=== PATIENT | female | born 1990 | race Two or more races ===

== ENCOUNTER 2025-01-29 12:20 | Emergency (ER) | payer OTHER, SELFPAY ==
[2025-01-29] VITALS (8 sets, daily range): BP systolic 124–155; BP diastolic 79–108; PULSE 84–108; RESP 18–96; TEMP 36.6–36.9; O2SAT 95–99; BMI 32.3
--- NOTE | 2025-01-29 12:23 | PC.CC ---
Patient was BIBA from home for intentional overdose. EMS reported to bedside RN Meg that patient intentionally took 30-40 25mg of Lamotrigine and drank 17 beers. Per Officer Ernesto, patient reported she does not know if the took the medication intentionally.
--- NOTE | 2025-01-29 12:31 | EKG_ITS ---
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
--- NOTE | 2025-01-29 12:33 | XR_ITS ---
EXAMINATION: AP chest single view TECHNIQUE: Portable semiupright AP chest single view Date and time: January 29, 2025, 12:36 p.m. INDICATIONS: Chest pain abdominal pain today. FINDINGS: Reduced inspiratory effort No pneumonia or pulmonary edema Normal heart size IMPRESSION: Poor inspiratory effort chest x-ray
--- NOTE | 2025-01-29 12:49 | PC.NURSE ---
Called Poison control, spoke with Raymond , informed him, patient took approx. 30-40 tabs of lamitrogen 25mg pills at approx. 1210pm with 17 beers. Per Raymond urbano charcoal, EKG stat and repeat in 6 hrs, if QRS prolonged >120, give 2 AMp of Sodium Bicarb, get cbc,cmp, tylenol, ASA, TANA and UDS levels. Monitor for seizures, place in seizure precautions, if patient has sz give benzodiazepines, Monitor for 6-8 hrs and ok to medical cleared if asymptomatic, Will notify Dr. Gay.
[2025-01-29 12:50] LABS: Basophils # (Auto) 0.0 Thou/mm3 (0.0-0.2); Basophils % (Auto) 0 % (0-2.5); Eosinophils # (Auto) 0.0 Thou/mm3 (0.0-0.5); Eosinophils % (Auto) 0 % (0-10); Hematocrit 38.3 % (36.0-46.0); Hemoglobin 12.9 g/dL (12.0-16.0); Immature Granulocytes Auto 0.04 Thou/mm3 (0.00-0.00); Lymphocytes # (Auto) 1.6 Thou/mm3 (1.0-4.8); Lymphocytes % (Auto) 18 % (10-50); Mean Corpuscular HGB Conc 33.7 g/dl (31.0-37.0); Mean Corpuscular Hemoglobin 29.0 pg (25.0-35.0); Mean Corpuscular Volume 86 fL (80-100); Monocytes # (Auto) 0.3 Thou/mm3 (0.0-0.8); Monocytes % (Auto) 4 % (0-12); Neutrophils # (Auto) 6.5 Thou/mm3 (1.8-7.7); Neutrophils % (Auto) 77 % (37-80); Nucleated Red Blood Cell # 0.00 Thou/mm3 (0.00-0.00); Nucleated Red Blood Cell % 0 /100 WBC (0); Platelet Count 317 Thou/mm3 (140-440); RDW Standard Deviation 42.2 fL (36.4-46.3); Red Blood Count 4.45 Miln/mm3 (4.00-5.20); White Blood Count 8.5 Thou/mm3 (3.6-11.0)
[2025-01-29] MEDS: ONDANSETRON INJ 2 MG/ML INJ 2 ML 4 MG IVP (13:08)
[2025-01-29] MEDS: FAMOTIDINE INJ 10 MG/ML VIAL 2 ML 20 MG IVP (13:08)
[2025-01-29] MEDS: SODIUM CHLORIDE 0.9% 1000 ML 1,000 ML 999 ML IV (13:09)
[2025-01-29 13:18] LABS: Acetaminophen < 2.0 mcg/mL (10.0-20.0); Alanine Aminotransferase 32 U/L (10-49); Albumin, Serum 5.2 gm/dL (3.5-5.0); Albumin/Globulin Ratio 1.8 (1.2-2.2); Alcohol, Blood Medical 76.2 mg/dL (0-10.0); Alkaline Phosphatase 97 U/L (46-116); Anion Gap 17 (7-16); Aspartate Amino Transferase 41 U/L (0-34); BUN/Creatinine Ratio 8 Ratio (12-20); Bilirubin,Total 0.2 mg/dL (0.3-1.2); Blood Urea Nitrogen 6 mg/dL (9-23); Calcium 9.0 mg/dL (8.3-10.6); Calcium (Corrected) 9.0 mg/dL (8.5-10.1); Carbon Dioxide 18.8 mMol/L (20.0-31.0); Chloride 107 mMol/L (98-107); Creatinine (Component) 0.8 mg/dL (0.6-1.3); Estimated Creatinine Clearance 112.4 mL/min (>60); Globulin 2.9 gm/dL (2.3-3.5); Glucose 124 mg/dL (74-106); Osmolality,Calculated 283 (275-295); Potassium 4.2 mMol/L (3.4-5.1); Salicylate < 3.0 mg/dL; Sodium 143 mMol/L (136-145); Total Protein 8.1 gm/dL (5.7-8.2); eGFR > 60 See Note
[2025-01-29 13:26] LABS: Collection Type, Urine Clean Catch; Squamous Epithelial Cell,Urine 0 /hpf (0-5)
--- NOTE | 2025-01-29 13:29 | PC.NURSE ---
Per Dr. Gay, no activated charcoal needed to be given to patient.
[2025-01-29 13:33] LABS: HCG Qualitative,Urine Negative
[2025-01-29 13:35] LABS: Bacteria,Urine Rare; Bilirubin,Urine Negative (Negative); Blood,Urine Negative (Negative); Clarity,Urine Clear (Clear/Hazy); Color,Urine Colorless (Lt Yel-Yel); Culture Indicated,Urine Not Indicated; Glucose, Urine Negative (Negative); Ketones,Urine Negative (Negative); Leukocyte Esterase,Urine Positive (Negative); Nitrite,Urine Negative (Negative); PH,Urine 5.0 (5.0-7.0); Protein,Urine Negative (Neg - Trace); RBC,Urine 1 /hpf (0-3); Specific Gravity,Urine 1.003 (1.001-1.035); Urobilinogen,Urine Negative mg/dL (0.0-1.0); WBC,Urine 1 /hpf (0-5)
--- NOTE | 2025-01-29 13:44 | PC.NURSE ---
Stokes scale not able to completely answered due to patient not verbally responding to questions at this time other than stating her stomach hurts. RN will continue to prompt patient columbia scale questionnaire.
[2025-01-29 13:51] LABS: Amphetamine/Methamp Scrn,U Negative (Negative); Barbiturate Screen,Urine Negative (Negative); Benzodiazepines Screen,Urine Negative (Negative); Benzoylecgonine Screen, Ur Negative (Negative); Fentanyl Screen,Urine Negative (Negative); Opiate Screen,Urine Negative (Negative); THC Screen,Urine Negative (Negative)
--- NOTE | 2025-01-29 14:07 | EDNOTE_ITS ---
ED Overdose ERNIEE/HPI General Chief Complaint: Overdose Stated Complaint: OD Time Seen by Provider: 01/29/25 12:27 Source: patient Arrival date/time: 01/29/25 12:20 Mode of arrival: EMS Limitations: altered mental status ERNIEE / YOLANDE TOLEDO complaint: intentional overdose Onset (ago): hour(s) Time: 08:00 Intent: suicide attempt Associated symptoms: depression Treatments Prior to Arrival: oxygen Related Data Allergies Allergy/AdvReac Type Severity Reaction Status Date / Time ibuprofen Allergy Intermediate Abdominal Verified 01/29/25 12:32 Pain Review of Systems Review of Systems Systems Reviewed: All systems reviewed, normal except as documented Past Medical History Past Medical History CARDIAC: Positive Hypertension; Negative Congestive Heart Failure RESPIRATORY: Negative Chronic Obstructive Pulmonary Disease (COPD) GENITOURINARY: Negative Renal Disease ENDOCRINE: Negative Diabetes Mellitus Type 1 or Diabetes Mellitus Type 2 PSYCHO/SOCIAL: Positive Bipolar Disorder ED Exam General Limitations: Present altered mental status General appearance: Present lethargic Head Head exam: Present atraumatic Eye Eye exam: Present normal appearance, PERRL and EOMI ENT ENT exam: Present normal exam, normal oropharynx and mucous membranes moist Neck Neck exam: Present normal inspection, full ROM and trachea midline Chest Chest inspection: Present normal inspection and symmetric chest wall rise Respiratory Respiratory exam: Present normal lung sounds bilaterally Cardiovascular Cardiovascular exam: Present regular rate, normal rhythm and normal heart sounds Abdominal Exam Abdominal exam: Present soft and normal bowel sounds; Absent organomegaly or mass Rectal Exam Rectal exam: Present deferred Extremities Exam Extremities exam: Present normal inspection and full ROM Back Exam Back exam: Present normal inspection and full ROM Neurological Exam Neurological exam: Present other (initially unable to assess) Psychiatric Psychiatric exam: Present depressed and other (tearful) Skin Skin exam: Present warm, dry, intact and normal color Course Quality Measures none Orders Category Date Time Status Bedside Blood Glucose Q1HR Care 01/29/25 12:31 Completed Coordinator Skill Training Program NOW Care 01/29/25 12:32 Completed Continuous Pulse Oximetry NOW Care 01/29/25 12:31 Completed EKG (ED ONLY) *Do not use* NOW Care 01/29/25 12:32 Completed In and Out Catheter X1 Care 01/29/25 12:31 Completed Insert IV NOW Care 01/29/25 12:32 Completed Lavage via NG / OG tube X1 Care 01/29/25 12:35 Completed NPO NOW Care 01/29/25 12:31 Completed One-to-one observation NOW Care 01/29/25 12:31 Completed Suicide precautions NOW Care 01/29/25 12:31 Completed CXRP [XR chest 1V portable] Stat Exams 01/29/25 12:33 Completed EKG (ED Only) Stat Exams 01/29/25 12:31 Draft Acetaminophen Stat Lab 01/29/25 12:40 Completed Acetaminophen Stat Lab 01/29/25 17:40 Completed Alcohol, Blood Medical Stat Lab 01/29/25 12:40 Completed CBC Stat Lab 01/29/25 12:40 Completed Comprehensive Metabolic Panel Stat Lab 01/29/25 12:40 Completed Drug Screen,Urine Stat Lab 01/29/25 13:06 Completed HCG Qualitative,Urine Stat Lab 01/29/25 13:06 Completed Salicylate Stat Lab 01/29/25 12:40 Completed Urinalysis, C/S if Indicated Stat Lab 01/29/25 13:06 Completed Famotidine Inj [Pepcid Inj] Med 01/29/25 12:42 Discontinued 20 mg IVP X1 ONE Ondansetron Inj [Zofran Inj] Med 01/29/25 12:42 Discontinued 4 mg IVP X1 ONE Sodium Chloride 0.9% 1000 ml [Ns] 1,000 ml Med 01/29/25 12:31 Discontinued IV X1 activated charcoaL [Actidose-Aqua] Med 01/29/25 12:39 Discontinued 50 gm PO X1 ONE Oxygen Delivery NOW RT 01/29/25 12:32 Completed Vital Signs Vital signs: Vital Signs Temperature 97.9 F 01/29/25 12:21 Pulse Rate 98 01/29/25 12:21 Respiratory Rate 20 01/29/25 12:21 Blood Pressure 155/99 H 01/29/25 12:21 Pulse Oximetry (%) 96 01/29/25 12:21 Oxygen Delivery Method Room Air 01/29/25 12:21 Overdose Patient data External records reviewed:: None Clinical information provided by:: patient Social determinants that could affect healthcare access:: none Patient has the following chronic illnesses:: bipolar disorder, seizure disorder How is presenting disease/condition affected by chronic disease/condition?: exacerbated by Evaluation data The following diagnostics were reviewed and interpreted by me:: lab results, radiology exam(s) and EKG tracing(s) Lab and/or radiology exams considered but not ordered:: Laboratories are all within normal limits Interpretation Summary: N/A Medications / Prescriptions Medications or Prescriptions considered but not ordered:: ativan Medication administrations:: Medication Administration History Discontinued Medications Charcoal (Activated Charcoal 25 Gm/120 Ml Tube) 50 gm PO X1 ONE Stop: 01/29/25 12:40 Last Admin: 01/29/25 13:29 Dose: Not Given Documented By: MIESHA Non-Admin Reason: Cancelled by Provider Famotidine (Famotidine Inj 10 Mg/Ml Vial 2 Ml) 20 mg IVP X1 ONE Stop: 01/29/25 12:43 Last Admin: 01/29/25 13:08 Dose: 20 mg Documented By: ANGY Sodium Chloride (Ns) 1,000 mls @ 999 mls/hr IV X1 ONE Stop: 01/29/25 13:31 Last Infusion: 01/29/25 14:10 Dose: Infused Documented By: Admin: 01/29/25 13:09 Dose: 999 mls/hr Documented By: ANGY Ondansetron HCl (Ondansetron Inj 2 Mg/Ml Inj 2 Ml) 4 mg IVP X1 ONE; Protocol Stop: 01/29/25 12:43 Last Admin: 01/29/25 13:08 Dose: 4 mg Documented By: ANGY as above Consultations Consultation(s) initiated? (list below): No Diagnosis Overdose Differential Diagnosis: cocaine intoxication, suicide attempt by multiple drug overdose, poisoning by opiate or related narcotic, drug overdose and acetaminophen overdose Most likely diagnosis given after review of the tests above:: Drug overdose Admission Indicated Admission indicated?: not indicated Admission Request Was there a request for admission?: No Disposition Plan Disposition Plan: Transfer (Patient on 5150 hold for suicidal ideation. Patient is medically clear for psychiatric evaluation) Discharge Plan Plan Patient Disposition: HOME (Self Care) Discharge Disposition comment: Stable Problem List Clinical Impression: Depression with suicidal ideation, Overdose by ingestion Patient/Caregiver Discharge Instructions Discharge Activity: activity as tolerated Diet Instructions: Force fluids Education Materials: Depression and Suicide Additional Instructions: Psychiatric medications as directed. Follow-up with psychiatric services within 7-10 days Print Language: Pashto Stand Alone Forms: Shirley Award Info., Patient Portal Info Letter
--- NOTE | 2025-01-29 14:07 | PC.CC ---
Almond Pan Finisher spoke with underground supervisor Kathy who reported Poison Control has been contacted and Pt will be under observation for 6-8 hrs. Almond Pan Finisher spoke with Pt Mother due to Mother requesting to speak to a SW. Mother reported this is Pt x4 suicide attempt. Onces M/C Pt will have a mental health eval.
[2025-01-29 18:31] LABS: Acetaminophen < 2.0 mcg/mL (10.0-20.0)
--- NOTE | 2025-01-29 19:09 | EDNOTE_ITS ---
Emergency Room Addendum Addendum Narrative: 1800: Care assumed from Dr. Gay (emergency physician). Past medical, surgical, social and family history reviewed. Vitals and home medications reviewed. Results and treatment plan discussed. I will assume the care of the patient at this time and will follow the patient, pending social welfare research worker consult. The following addendum documentation note is intended to reflect any pending information, findings, or radiology results not included in the patient?s initial chart by the previous shift scribe. The patient had access and provided personal hygiene, shower, food, water, and daily medications. 2010: Assumed care of this 34 y/o female with Hx of BPD in a break up with her boyfriend, reportedly ingested up to 30 Lexapro tablets and reportedly vomiting majority of pill fragments 30 minutes after ingestion. Patient was seen and underwent nasalgastric lavage, hydration, and activated charcoal. Labpratory markers demonstrated essentially normal CBC. UA unremarkable. test was negative. Toxicology screen was negative. Serial Tylenol levels undetected. Patient was observed for an exteneded period of time, cleared medically, and evaluated by psychiatric services. Patient willing to contract father. Patient denies active SI and admits attempts initially, efforts were made to obtain a reaction from boyfrien. After extended period of observation patient considered medically cleared and stable enough for discharge. I have spoken with the patient and discussed today?s findings, in addition to providing specific details for the plan of care. Questions are answered and there is an agreement with the plan. Re-assessment at the time of disposition demonstrates that the patient is in no acute distress. The patient has remained stable throughout the entire ED visit and is without objective evidence for acute process requiring urgent intervention or hospitalization. The patient is stable for discharge; counseling is provided and documented as above, discussed symptomatic treatment and specific conditions for return.
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
== END 2025-01-29 20:38 | disposition home or self-care (01) ==
PROVIDERS: Family Medicine; Emergency Provider Emergency Medicine
DX: T50.902A Poisoning by unspecified drugs, medicaments and biological substances, intentional self-harm, initial encounter (principal); F32.A Depression, unspecified
CPT/HCPCS: 36415; 51701; 71045; 80053; 80307; 80320; 80329; 81001; 81025; 85025; 93005; 96127; 96361; 96374; 96375; 99285; J2405; J3490; J7030; G0480